=== PATIENT | male | born 2005 | race Caucasian/White ===

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

== ENCOUNTER 2023-02-02 11:44 | Outpatient (CLI) | payer OTHER, SELFPAY ==
[2023-02-02 18:37] LABS: Basophils Absolute Auto 0.1 K/mm3 (0.0-0.1); Basophils Percent Auto 1.2 % (0.2-1.2); Eosinophils Absolute Auto 0.1 K/mm3 (0-0.3); Eosinophils Percent Auto 1.7 % (0-4.4); Immature Granulocyte Absolute 0.02 K/mm3 (0.00-0.031); Immature Granulocyte Percent A 0.3 % (0-0.5); Lymphocytes Percent Auto 34.3 % (18.3-44.2); Mean Corpuscular Hemoglobin 30.4 pg (26-34); Mean Corpuscular Volume 89.3 fl (80-100); Mean Platelet Volume 10.2 fl (7.4-10.4); Monocytes Absolute Auto 0.8 K/mm3 (0.1-0.6); Monocytes Percent Auto 12.6 % (2.6-8.5); Neutrophils Absolute Auto 3.2 K/mm3 (1.3-6.7); Neutrophils Percent Auto 49.9 % (45.5-73.1); Platelet Count Result 237 k/mm3 (150-375); Red Cell Distribution Width 11.9 % (11.5-14.5); White Blood Count 6.4 K/mm3 (4.5-10.0)
[2023-02-02 19:28] LABS: Vitamin D 25 Hydroxy 43.3 ng/mL
== END 2023-02-02 11:45 | disposition home or self-care (01) ==
LOC: ANHGOSHLAB 11:46
PROVIDERS: PCP Family Medicine; Visit Provider Nurse Practitioner Family
DX: F41.9 Anxiety disorder, unspecified (principal); F32.9 Major depressive disorder, single episode, unspecified
CPT/HCPCS: 36415; 82306; 82607; 84443; 85025

== ENCOUNTER 2024-01-28 13:50 | Emergency (ER) | payer OTHER, SELFPAY ==
--- NOTE | ~2024-01-28 | XR_ITS ---
XR finger 1st LT min 2V Ordering provider: Kiya Hoyt APRN History: . injury; pain . Comparison: None. FINDINGS: BONES: No acute fracture or dislocation. JOINT SPACES: Normal. SOFT TISSUES: Normal. IMPRESSION: No acute osseous abnormality. Reviewed, dictated and finalized at location A.
[2024-01-28 14:01] VITALS: BP 130/74; PULSE 99; RESP 18; TEMP 37.1; O2SAT 96
--- NOTE | 2024-01-28 22:36 | ED.GENADULT ---
HPI - General Adult General Chief complaint: Extremity Injury, Upper Stated complaint: LT hand Thumb injury Time Seen by Provider: 01/28/24 14:04 Source: patient, RN notes reviewed and old records reviewed Mode of arrival: ambulatory Limitations: no limitations History of Present Illness HPI narrative: 18-[facility] to [facility] with complaint of left thumb bruising and discomfort with movement since . 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 Patient reports that while trying to catch it, his left thumb hyperextended. Patient has treated with ice. Patient increased to palmar surface. Patient denies numbness, tingling, prior injury, weakness. Patient resting comfortably in exam room in no acute distress. Related Data Home Medications Medication Instructions Recorded Confirmed dextromethorphan IR 45 45 - 105 tablet PO BID 01/28/24 01/28/24 mg-bupropion ER 105 mg biphasic tablet (Auvelity) Allergies Allergy/AdvReac Type Severity Reaction Status Date / Time Penicillins Allergy Unknown Hives Verified 01/28/24 14:00 Review of Systems Review of Systems: All systems reviewed & are unremarkable except as noted in HPI and below Constitutional: Constitutional: Reports no additional constitutional complaints Eyes: Eyes: Reports no additional eye complaints ENT: Reports system reviewed and no additional complaints, except as documented Cardiovascular: Cardiovascular: Reports no additional cardiovascular complaints, Denies chest pain and Denies dyspnea Respiratory: Respiratory: Reports no additional respiratory complaints, Denies cough and Denies dyspnea Musculoskeletal: Musculoskeletal: Reports as per HPI and Reports arthralgias (left thumb) Neurologic: Reports system reviewed and no additional complaints, except as documented Psychiatric: Psychiatric: Reports no additional psychiatric complaints [facility] Past Medical History Medical History Depression Fracture of finger, middle phalanx, right, closed Vasomotor rhinitis Family History Family History Sibling Family history of mental disorder Depression Grandparent Family history of cardiovascular disease Family history of congestive heart failure Social History Social History Smoking status: Never smoker Second hand tobacco smoke exposure: Yes Alcohol intake: never Lack of Transportation: No Lack of Food: Never True Current Housing: I Have Housing Concerned About Future Housing: No Difficulty Paying Gas/Electric Bills: No Difficulty Paying for Meds: No Currently Unemployed: No Education: High School Diploma/GED Living arrangements: dorm student housing Occupation/Education: student Gender identity (if verbalized by the patient): Male Comments At the time of my signature, I reviewed and agree with the nursing past medical, surgical, social, and family history. There is no relevant family history pertinent to the patient complaint. Exam Const: General: cooperative, healthy appearing, comfortable, no acute distress, alert and well nourished Nutritional Appearance: well nourished Orientation/consciousness: patient oriented x3 Limitations: no limitations HENMT: Head: normal to inspection Ears: external ears normal Face/Nose/Sinus: Normal external nose present, Normal nares present, normal facial exam, No erythema and No edema Face and sinus: normal facial exam, no erythema and no edema Mouth: Yes Normal oral and palatal mucosa present Eyes: General: appearance normal, both eyes and all related structures Neck: Neck: normal visual inspection, full ROM and no meningeal signs Chest: Chest palpation & inspection: normal inspection of the chest Resp: Effort & Inspection: nor
== END 2024-01-28 14:53 | disposition home or self-care (01) ==
PROVIDERS: Emergency Provider Nurse Practitioner Family; PCP Family Medicine
DX: S63.602A Unspecified sprain of left thumb, initial encounter (principal); X50.9XXA Other and unspecified overexertion or strenuous movements or postures, initial encounter
CPT/HCPCS: 73140; 99213; G0463

== ENCOUNTER 2024-05-21 09:40 | Outpatient (CLI) | payer OTHER, SELFPAY ==
--- OUTSIDE RECORDS SUMMARY | 2024-05-21 10:48 | XMS_ITS | Clinical Summary ---
Author Organization [facility] Address [address] [place] [address] Care Team Providers Care Limnologist Name Role Phone Chivo Whittaker MD Primary Care Provider [phone] [facility],non-owned Affiliates and Associated Physician Practices is amultiple site organization consisting of ambulatory clinics and hospital sitesin [place], [place], [place] and [place]. This disclosure is being madepursuant to the Care Everywhere program and may not contain all information available regarding this patient. Last updated 17.[facility] Allergies Active Allergy Reactions Criticality Noted Date Comments Penicillins Urticaria Medium 05/01/2021 Medications Be aware that medications may not be up to date on this document. Always verify current medications with the patient. No known medications Active Problems Patient Care Coordination No te Formatting of this note migh t be different from the original. Do you have any cultural preferences or concerns? No 08/24/21 No additional problems on file Social History Tobacco Use Types Packs/Day Years Used Date Smoking Tobacco: Passive Smo ke Exposure - Never Smoker Smokeless Tobacco: Never Comments:both parents smoke outside Sex and Gender Information Value Date Recorded Sex Assigned at Not on file Gender Identity Not on file Sexual Orientation Not on file Last Filed Vital Signs Vital Sign Reading Time Taken Comments Blood Pressure 110/78 08/24/2021 2:35 PM CDT Pulse 66 08/24/2021 2:35 PM CDT Temperature - - Respiratory Rate 20 08/24/2021 2:35 PM CDT Oxygen Saturation 97% 08/24/2021 2:35 PM CDT Inhaled Oxygen Concentration - - Weight 57 kg (125 lb 10.6 oz) 08/24/2021 2:35 PM CDT Height 171.7 cm (5' 7.6 ) 08/24/2021 2:35 PM CDT Body Mass Index 19.33 08/24/2021 2:35 PM CDT Plan of Treatment Health Maintenance Due Date Last Done Comments HIV SCREENING 11/03/2018 HPV VACCINE (1 - Male 3-dose series) 11/03/2018 MENINGOCOCCAL (Group B) VACC INE (1 of 2 - Standard) 2019 HEPATITIS C SCREENING 10/30/2021 DTAP/TDAP/TD VACCINES (1 - Tdap) 11/03/2022 HEPATITIS B VACCINE (1 of 3 - 19+ 3-dose series) 11/03/2022 COVID-19 VACCINE (1 - 2023-2 5 season) 2023 INFLUENZA VACCINE (#1) 2023 DEPRESSION SCREENING 04/09/2024 ZOSTER VACCINE (1 of 2) 11/03/2053 HIB VACCINE Aged Out No longer eligi ble based on patient's age to complete this topic MENINGOCOCCAL VACCINE Aged Out No malik yong eligible based on patient's age to complete this topic PNEUMOCOCCAL VACCINE Aged Out No long er eligible based on patient's age to complete this topic Care Teams Limnologist Relationship Specialty Start Date End Date Chivo Whittaker MD [address] [place] [id number] PCP - General Family Medicine 07/26/21
--- OUTSIDE RECORDS SUMMARY | 2024-05-21 10:48 | XMS_ITS | Patient Health Summary ---
Author Organization [facility] Address [address] [place] [address] Care Team Providers Care Computer Application Developer Name Role Phone Chivo Whittaker MD Primary Care Provider [phone]- [phone] Note from [facility] [place],non-owned Affiliates and Associated Physician Practices is amultiple site organization consisting of ambulatory clinics and hospital sitesin [place], [place], [place] and [place]. This disclosure is being madepursuant to the Care Everywhere program and may not contain all information available regarding this patient. Last updated 17.[facility] Allergies * Penicillins(Urticaria) -Medium Criticality Medications Be aware that medications may not be up to date on this document. Always verify current medications with the patient. No known medications Social History Tobacco Use Types Packs/Day Years [...] Mass Index 19.33 08/24/2021 2:35 PM CDT Care Teams Computer Application Developer Relationship Specialty Start Date End Date Chivo Whittaker MD [facility] [place] [address] PCP - General Family Medicine 07/26/21
--- OUTSIDE RECORDS SUMMARY | 2024-05-21 10:48 | XMS_ITS | Referral Summary ---
Author Organization [facility] Address [address] [place] [address] Care Team Providers Care Circular Knitter Name Role Phone Chivo Whittaker MD Primary Care Provider [phone]- [phone] Source Comments [facility],non-[facility] Affiliates and Associated Physician Practices is amultiple site organization consisting of ambulatory clinics and hospital sitesin [place], [place], [place] and [place]. This disclosure is being madepursuant to the Care Everywhere program and may not contain all information available regarding this patient. Last updated 17.[facility] [employer] Allergies Active Allergy Reactions Criticality Noted Date [...] 08/24/2021 2:35 PM CDT Plan of Treatment Not on file Care Teams Circular Knitter Relationship Specialty Start Date End Date Chivo Whittaker MD [facility] [place] [address] PCP - General Family Medicine 07/26/21
--- OUTSIDE RECORDS SUMMARY | 2024-05-21 10:48 | XMS_ITS | Patient Health Record ---
Author Organization [facility] [employer] Address [address] [facility] [address] [place] [address] Care Team Providers Care Multi [place] Assessor Name Role Phone Chivo Whittaker MD Primary Care Provider Alycia Luo Unavailable [phone] Yousuf Anthony Unavailable [phone] Migration, Provider Unavailable Unavailable Allergies Allergen (clinical drug ingredient) Drug/Non Drug Allergy documented on EMR Reaction Allergy Type Onset Date Status Substance with penicillin structure and antibacterial mechanism of action (substance) Penicillins Unknown Drug Allergy 07/25/2023 Active Reason For Referral No Information Medications Medication SIG (Take, Route, Fr equency, Duration) Notes Start Date End Date Status Mirtazapine 15 MG 1 tablet at bedtime Oral Once a day for 90 days Active Desvenlafaxine ER 50 MG 1 tablet Orally Once a day for 30 days 04/25/2024 Active Social History Tobacco Use: Social History Observation Description Date Details (start date - stop date) Never Smoker NA - NA Sex Assigned At : Social History Observation Description Sex Assigned At Male Household Question Answer Notes Marital status: single Number of children in household: 0 Level of education: finished high school Tobacco Control (Standard) Question Answer Notes Tobacco use: Nonsmoker AUDIT-C (Standard) Question Answer Notes Did you have a drink contain ing alcohol in the past year? Yes Points 6 Interpretation Positive How often did you have six o r more drinks on one occasion in the past year? 2 to 4 times a month (2 points) How many drinks did you have on a typical day when you were drinking in the past year? 5 or 6 drinks (2 points) How often did you have a dri nk containing alcohol in the past year? 2 to 4 times a month (2 points) Problems Problem Type SNOMED Code ICD Code Onset Dates Problem Status W/U Status Risk Notes Problem Severe recurrent major depression without psychotic features (28862686) Major depressive disorder, recurrent severe without psychotic features (F33.2) Active confirmed Problem Generalized anxiety disorder (14169395) Generalized anxiety disorder (F41.1) Active confirmed Problem Attention deficit hyperactivity disorder, combined type (28498678) Attention-deficit hyperactivity disorder, combined type (F90.2) Active confirmed Problem [id number] MARY KAY (generalized anxiety disorder) (F41.1) Active confirmed Problem 56534298 MDD (major depressive disorder), recurrent severe, without psychosis (F33.2) Active confirmed Vital Signs Heart Rate 71 /min 07/25/2023 Blood pressure diastolic 72 mm Hg 07/25/2023 Height-cm 172.72 cm 07/25/2023 Weight-kg 62.60 kg 07/25/2023 Height 68.00 in 07/25/2023 Blood pressure systolic 112 mm Hg 07/25/2023 Weight 138.00 lbs 07/25/2023 BMI 21 kg/m2 07/25/2023 Encounters Encounter Location Date Provider Diagnosis [facility] [employer] [place] [id number] [address] 05/23/2023 Anthony Yousuf Major depressive disorder, recurrent severe without psychotic features F33.2 and Generalized anxiety disorder F41.1 [facility] [employer] [facility] [address] [address] 05/30/2023 Anthony Yousuf Major depressive disorder, recurrent severe without psychotic features F33.2 and Generalized anxiety disorder F41.1 [facility] [employer] [facility] [address] [address] 06/13/2023 Alycia Kristen Major depressive disorder, recurrent severe without psychotic features F33.2 and Generalized anxiety disorder F41.1 [facility] [employer] [facility] [address] [facility] [address] [place] [address] 07/25/2023 Alycia Kristen Generalized anxiety disorder F41.1 and Major depressive disorder, recurrent severe without psychotic features F33.2 [facility] [employer] [facility] [address] [facility] [address] [place] [address] 09/12/2023 Alycia Kristen MDD (major depressiv e disorder), recurrent severe, without psychosis F33.2 and MARY KAY (generalized anxiety disorder) F41.1 [facility] [address] [place] [address] 10/03/2023 Alycia Kristen Major depressive disorder, recurrent severe without psychotic features F33.2 ; Generalized anxiety disorder F41.1 ; Attention-deficit hyperactivity disorder, combined type F90.2 ; MDD (major depressive disorder), recurrent severe, without psychosis F33.2 and MARY KAY (generalized anxiety disorder) F41.1 [facility] [address] [place] [address] 11/06/2023 Alycia Kristen Major depressive disorder, recurrent severe without psychotic features F33.2 ; Generalized anxiety disorder F41.1 and Attention-deficit hyperactivity disorder, combined type F90.2 [facility] [address] [place] [address] 12/14/2023 Alycia Kristen Major depressive disorder, recurrent severe without psychotic features F33.2 ; Generalized anxiety disorder F41.1 and Attention-deficit hyperactivity disorder, combined type F90.2 [facility] [address] [place] [address] 01/11/2024 Alycia Kristen Major depressive disorder, recurrent severe without psychotic features F33.2 ; Generalized anxiety disorder F41.1 and Attention-deficit hyperactivity disorder, combined type F90.2 [facility] [address] [place] [address] 02/15/2024 Alycia Kristen Major depressive disorder, recurrent severe without psychotic features F33.2 ; Generalized anxiety disorder F41.1 and Attention-deficit hyperactivity disorder, combined type F90.2 [facility] [address] [place] [address] 03/14/2024 Alycia Kristen Major depressive disorder, recurrent severe without psychotic features F33.2 ; Generalized anxiety disorder F41.1 and Attention-deficit hyperactivity disorder, combined type F90.2 [facility] [address] [place] [address] 04/25/2024 Alycia Kristen Major depressive disorder, recurrent severe without psychotic features F33.2 ; Generalized anxiety disorder F41.1 and Attention-deficit hyperactivity disorder, combined type F90.2 [facility] [address] [place] [address] 08/16/2023 Provider Migration [facility] [address] [facility] [address] [place] [address] 08/25/2023 Provider Migration [facility] [address] [facility] [address] [place] [address] 08/26/2023 Provider Migration Assessments Encounter Date Diagnosis (ICD Code) Assessment Notes Treatment Notes Treatment Clinical Notes Section Notes 10/03/2023 Major depressive disorder, recurrent severe without psychotic features (ICD-10 - F33.2) Start duloxetine 30mg daily for mood, anxiety. Patient educated on all medications including potential benefits, side effects, risks. Educated on proper dosing schedule and importance of compliance. 10/03/2023 Generalized anxiety disorder (ICD-10 - F41.1) 11/06/2023 Major depressive disorder, recurrent severe without psychotic features (ICD-10 - F33.2) Start duloxetine 30mg daily for mood, anxiety. Patient educated on all medications including potential benefits, side effects, risks. Educated on proper dosing schedule and importance of compliance. 12/14/2023 Major depressive disorder, recurrent severe without psychotic features (ICD-10 - F33.2) Increase duloxetine to 60mg BID for anxiety, depression. Patient educated on all medications including potential benefits, side effects, risks. Educated on proper dosing schedule and importance of compliance. 01/11/2024 Major depressive disorder, recurrent severe without psychotic features (ICD-10 - F33.2) Electronic Prior Authorization was requested for Auvelity 45-105 MG Tablet Extended Release. Provider can order medication once approval received. 02/15/2024 Major depressive disorder, recurrent severe without psychotic features (ICD-10 - F33.2) 1. MDD -stop auvelity -start trintellix 5mg daily 2. MARY KAY -mirtazapine 15mg daily -Encourage non-pharmaceu tical treatments including deep breathing, grounding exercises, physical activity, healthy diet. 3. ADHD 04/25/2024 Major depressive disorder, recurrent severe without psychotic features (ICD-10 - F33.2) SSRI/SNRI side effects discussed including but not limited to, gastric upset, nausea, vomiting, diarrhea and/or constipation, weight changes, sexual side effects including loss of libido, increased suicidal thoughts/behavior s in children and young adults, and serotonin syndrome. 03/14/2024 Major depressive disorder, recurrent severe without psychotic features (ICD-10 - F33.2) 1. MDD -increase trintellix-10 mg daily for one week then 20mg daily -willing to consider TMS or esketamine next apt if trintellix not helpful -discussed maintaining conistant sleep routine and sleep hygeine. 2. MARY KAY -mirtazapine 15mg daily -Encourage non-pharmaceu tical treatments including deep breathing, grounding exercises, physical activity, healthy diet. 3. ADHD manageable off of medication Discussed TMS and esketamine - KEEP YOUR BEDROOM DARK - GET LOTS OF NATURAL LIGHT IN THE MORNING. - DON'T WORK ON YOUR COMPUTER OR PHONE LATE AT NIGHT. - AVOID NAPS DURING THE DAY. - NO CAFFEINE 3 HOURS OR MORE AFTER WAKE UP TIME. - ONLY USE YOUR BED FOR SLEEPING - GET A RELAXATION ROUTINE BEFORE BED. - IF YOU CAN'T GET TO SLEEP AFTER 15 TO 30 MINUTES GET OUT OF BED AND DO SOMETHING RELAXING. - DON'T DRINK ALCOHOL IN THE EVENING or limit alcohol to 1 drink. 09/12/2023 MDD (major depressive disorder), recurrent severe, without psychosis (ICD-10 - F33.2) Stop Rexulti due to ineffectiveness. Wants to consider TMS in future. 05/23/2023 Major depressive disorder, recurrent severe without psychotic features (ICD-10 - F33.2) 05/23/2023 Generalized anxiety disorder (ICD-10 - F41.1) 05/30/2023 Major depressive disorder, recurrent severe without psychotic features (ICD-10 - F33.2) 05/30/2023 Generalized anxiety disorder (ICD-10 - F41.1) 07/25/2023 Major depressive disorder, recurrent severe without psychotic features (ICD-10 - F33.2) 07/25/2023 Generalized anxiety disorder (ICD-10 - F41.1) 06/13/2023 Major depressive disorder, recurrent severe without psychotic features (ICD-10 - F33.2) 06/13/2023 Generalized anxiety disorder (ICD-10 - F41.1) 09/12/2023 MARY KAY (generalized anxiety disorder) (ICD-10 - F41.1) Start Buspar 5 mg TID for anxiety. 03/14/2024 Generalized anxiety disorder (ICD-10 - F41.1) 1. MDD -increase trintellix-10 mg daily for one week then 20mg daily -willing to consider TMS or esketamine next apt if trintellix not helpful -discussed maintaining conistant sleep routine and sleep hygeine. 2. MARY KAY -mirtazapine 15mg daily -Encourage non-pharmaceu tical treatments including deep breathing, grounding exercises, physical activity, healthy diet. 3. ADHD manageable off of medication Discussed TMS and esketamine - KEEP YOUR BEDROOM DARK - GET LOTS OF NATURAL LIGHT IN THE MORNING. - DON'T WORK ON YOUR COMPUTER OR PHONE LATE AT NIGHT. - AVOID NAPS DURING THE DAY. - NO CAFFEINE 3 HOURS OR MORE AFTER WAKE UP TIME. - ONLY USE YOUR BED FOR SLEEPING - GET A RELAXATION ROUTINE BEFORE BED. - IF YOU CAN'T GET TO SLEEP AFTER 15 TO 30 MINUTES GET OUT OF BED AND DO SOMETHING RELAXING. - DON'T DRINK ALCOHOL IN THE EVENING or limit alcohol to 1 drink. 04/25/2024 Generalized anxiety disorder (ICD-10 - F41.1) 02/15/2024 Generalized anxiety disorder (ICD-10 - F41.1) 1. MDD -stop auvelity -start trintellix 5mg daily 2. MARY KAY -mirtazapine 15mg daily -Encourage non-pharmaceu tical treatments including deep breathing, grounding exercises, physical activity, healthy diet. 3. ADHD 01/11/2024 Generalized anxiety disorder (ICD-10 - F41.1) 12/14/2023 Generalized anxiety disorder (ICD-10 - F41.1) 11/06/2023 Generalized anxiety disorder (ICD-10 - F41.1) 10/03/2023 Attention-defici t hyperactivity disorder, combined type (ICD-10 - F90.2) 11/06/2023 Attention-defici t hyperactivity disorder, combined type (ICD-10 - F90.2) 12/14/2023 Attention-defici t hyperactivity disorder, combined type (ICD-10 - F90.2) 01/11/2024 Attention-defici t hyperactivity disorder, combined type (ICD-10 - F90.2) 02/15/2024 Attention-defici t hyperactivity disorder, combined type (ICD-10 - F90.2) 1. MDD -stop auvelity -start trintellix 5mg daily 2. MARY KAY -mirtazapine 15mg daily -Encourage non-pharmaceu tical treatments including deep breathing, grounding exercises, physical activity, healthy diet. 3. ADHD 04/25/2024 Attention-defici t hyperactivity disorder, combined type (ICD-10 - F90.2) 03/14/2024 Attention-defici t hyperactivity disorder, combined type (ICD-10 - F90.2) 1. MDD -increase trintellix-10 mg daily for one week then 20mg daily -willing to consider TMS or esketamine next apt if trintellix not helpful -discussed maintaining conistant sleep routine and sleep hygeine. 2. MARY KAY -mirtazapine 15mg daily -Encourage non-pharmaceu tical treatments including deep breathing, grounding exercises, physical activity, healthy diet. 3. ADHD manageable off of medication Discussed TMS and esketamine - KEEP YOUR BEDROOM DARK - GET LOTS OF NATURAL LIGHT IN THE MORNING. - DON'T WORK ON YOUR COMPUTER OR PHONE LATE AT NIGHT. - AVOID NAPS DURING THE DAY. - NO CAFFEINE 3 HOURS OR MORE AFTER WAKE UP TIME. - ONLY USE YOUR BED FOR SLEEPING - GET A RELAXATION ROUTINE BEFORE BED. - IF YOU CAN'T GET TO SLEEP AFTER 15 TO 30 MINUTES GET OUT OF BED AND DO SOMETHING RELAXING. - DON'T DRINK ALCOHOL IN THE EVENING or limit alcohol to 1 drink. 10/03/2023 MDD (major depressive disorder), recurrent severe, without psychosis (ICD-10 - F33.2) Continue Remeron 15mg daily 10/03/2023 MARY KAY (generalized anxiety disorder) (ICD-10 - F41.1) Discontinue buspar due to side effects. 11/06/2023 Other Increase duloxeting to 60mg daily for anxiety. Patient educated on all medications including potential benefits, side effects, risks. Educated on proper dosing schedule and importance of compliance. 01/11/2024 Other Taper off of duloxetine. Start Auvelity-- take one tablet daily for one week, then two tablet daily 6-8 hours apart. Patient educated on all medications including potential benefits, side effects, risks. Educated on proper dosing schedule and importance of compliance. Consider TMS, Spravato 04/25/2024 Other Stop trintellix per pt. Start desvenlafaxine 50mg daily for mood Patient educated on all medications including potential benefits, side effects, risks. Educated on proper dosing schedule and importance of compliance. -Assessment and treatment plan reviewed with patient. -Compliance with treatment plan importance discussed. -Discussed the risks/benefits of this medication -Discussed medication side effects. -Contact office if symptoms worsen. -Discussed that it can take up to 6-8 weeks to see full therapeutic effects of psychotropic medications. -Crisis prevention hotline 988. 02/15/2024 Other Start trintellix 5mg daily for mood, anxiety. Patient educated on all medications including potential benefits, side effects, risks. Educated on proper dosing schedule and importance of compliance. 1. MDD -stop auvelity -start trintellix 5mg daily 2. MARY KAY -mirtazapine 15mg daily -Encourage non-pharmaceu tical treatments including deep breathing, grounding exercises, physical activity, healthy diet. 3. ADHD 03/14/2024 Other Increase Trintellix-take 10mg (half a tablet) daily for one week, then 20mg daily Consider TMS or esketamine next apt if no improvement Patient educated on all medications including potential benefits, side effects, risks. Educated on proper dosing schedule and importance of compliance. -Assessment and treatment plan reviewed with patient. -Compliance with treatment plan importance discussed. -Discussed the risks/benefits of this medication -Discussed medication side effects. -Contact office if symptoms worsen. -Discussed that it can take up to 6-8 weeks to see full therapeutic effects of psychotropic medications. -[phone] 1. MDD -increase trintellix-10 mg daily for one week then 20mg daily -willing to consider TMS or esketamine next apt if trintellix not helpful -discussed maintaining conistant sleep routine and sleep hygeine. 2. MARY KAY -mirtazapine 15mg daily -Encourage non-pharmaceu tical treatments including deep breathing, grounding exercises, physical activity, healthy diet. 3. ADHD manageable off of medication Discussed TMS and esketamine - KEEP YOUR BEDROOM DARK - GET LOTS OF NATURAL LIGHT IN THE MORNING. - DON'T WORK ON YOUR COMPUTER OR PHONE LATE AT NIGHT. - AVOID NAPS DURING THE DAY. - NO CAFFEINE 3 HOURS OR MORE AFTER WAKE UP TIME. - ONLY USE YOUR BED FOR SLEEPING - GET A RELAXATION ROUTINE BEFORE BED. - IF YOU CAN'T GET TO SLEEP AFTER 15 TO 30 MINUTES GET OUT OF BED AND DO SOMETHING RELAXING. - DON'T DRINK ALCOHOL IN THE EVENING or limit alcohol to 1 drink. Plan Of Treatment Next Appt Details Provider Name:Alycia Peterson, 05/23/2024 02:30:00 PM, [address] [facility] [address], [place], [address], Insurance Providers Payer Name Payer Address Payer Phone Subscriber Number Group Number Insured Name Patient Relationship to Insured Coverage Start Date Coverage End Date [facility] [address] [place] [address] [id number] [employer] Self - patient is the insured Medical (General) History Medical History History ICD Code Problems: Generalized anxiety disorder Severe recurrent major depression withou t psychotic features , Hospitalization History Reason Date(Month/Year) no IP admission hx
--- OUTSIDE RECORDS SUMMARY | 2024-05-21 10:49 | XMS_ITS ---
Author Organization [email or web address] Address [address] [facility] [address] [place] [address] Care Team Providers Care Linseed Oil Temperer Name Role Phone Chivo Whittaker MD Primary Care Provider Alycia Luo Unavailable [phone] Allergies Allergen (clinical drug ingredient) Drug/Non Drug Allergy documented on EMR Reaction Allergy Type Onset Date Status Substance with penicillin structure and antibacterial mechanism of action (substance) Penicillins Unknown Drug Allergy 07/25/2023 Active REASON FOR VISIT follow up Medications Medication SIG (Take, Route, Fr equency, Duration) Notes Start Date End Date Status Mirtazapine 15 MG 1 tablet at bedtime Oral Once a day for 90 days Active Trintellix 5 MG 1 tablet Orally Once a day for 30 days 02/15/2024 Active Social History Tobacco Use: Social History [...] to 4 times a month (2 points) Encounters Encounter Location Date Provider Diagnosis [facility] [address] [place] [address] [place] [address] 02/15/2024 Alycia Peterson Major depressive disorder, recurrent severe without psychotic features F33.2 ; Generalized anxiety disorder F41.1 and Attention-deficit hyperactivity disorder, combined type F90.2 Assessments Encounter Date Diagnosis (ICD Code) Assessment Notes Treatment Notes Treatment Clinical Notes Section Notes 02/15/2024 Major depressive disorder, recurrent severe without psychotic features (ICD-10 - F33.2) 1. MDD -stop auvelity -start trintellix 5mg daily 2. MARY KAY -mirtazapine 15mg daily -Encourage non-pharmaceu tical treatments including deep breathing, grounding exercises, physical activity, healthy diet. 3. ADHD 02/15/2024 Generalized anxiety disorder (ICD-10 - F41.1) 1. MDD -stop auvelity -start trintellix 5mg daily 2. MARY KAY -mirtazapine 15mg daily -Encourage non-pharmaceu tical treatments including deep breathing, grounding exercises, physical activity, healthy diet. 3. ADHD 02/15/2024 Attention-deficit hyperactivity disorder, combined type (ICD-10 - F90.2) 1. MDD -stop auvelity -start trintellix 5mg daily 2. MARY KAY -mirtazapine 15mg daily -Encourage non-pharmaceu tical treatments including deep breathing, grounding exercises, physical activity, healthy diet. 3. ADHD 02/15/2024 Other Start trintellix 5mg daily for mood, anxiety. Patient educated on all medications including potential benefits, side effects, risks. Educated on proper dosing schedule and importance of compliance. 1. MDD -stop auvelity -start trintellix 5mg daily 2. MARY KAY -mirtazapine 15mg daily -Encourage non-pharmaceu tical treatments including deep breathing, grounding exercises, physical activity, healthy diet. 3. ADHD Plan Of Treatment Medication Medication Name Sig Start Date Stop Date Notes Mirtazapine 15 MG 1 tablet at bedtime Oral Once a day for 90 days Trintellix 5 MG 1 tablet Orally Once a day for 30 days 11/2023 Auvelity 45-105 MG 1 tablet Oral twice a day for 30 days Treatment Notes Assessment Notes Other Start trintellix 5mg daily for mood, anxiety. Patient educated on all medications including potential benefits, side effects, risks. Educated on proper dosing schedule and importance of compliance. Next Appt Details Follow Up: 4 Weeks, Reason: medication follow up Provider Name:Alycia Peterson, 05/23/2024 02:30:00 PM, [address], [facility] [address], [place], [address], Progress Notes * PRECIOUS GIVENS HDOB: 4 (18 yo M)Acc No.[id number]:02/15/2024 Patient: PRECIOUS MANUEL Provider: FRANDY VÁSQUEZ :2005 A ge:18 Y S ex:Male Date:02/15/2024 Address:[address] [place], [place] [id number] Pcp:Chivo Whittaker MD Subjective: * Chief Complaints: * 1 . Follow up. * HPI: H istory of Presenting Problem: Anxiety w ith excessive worry, which has been long-standing, aggravated by, difficult work, financial and/or relationship issues. D epression w ith sad mood, with isolative behavior, with feeling of hopelessness and helplessness, with decreased energy, with decreased concentration, which has been long- standing, aggravated by, difficult work, financial and/or relationship issues R ates depression 6/10 with 10 being most severe. Denies SI. . M ood lability N o hx dorian. P sychosis N o hx psychosis . S leep disturbance e xcessive sleeping- has apt with sleep doctor. . S uicidal ideation D enies. Here for medication follow up. A uvelity started last apt. Reports he has not noticed a significant difference. Althought states he has not been taking the second dose as consistnatly as he should be, missing it a couple days weekly. He quit his job at the [employer], reports not having a job has been bad for his depression. He feels he has been isolating, I am getting nothiing done . He has been sleeping through classes.? Sleep is increased, getting about 9 hours nightly. Energy is low. Appetite is fair. P ast Psychiatric Hospitalizations: Social hx: Single, no children. Has three siblings, one older sister, one younger brother and sister. Completed high school. Went to school for one year at [employer]. 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 Unsure what he wants to do with his degree. Currently unemployed. Medical hx: Denies chronic medical history. History of one concussion Apr 2021 from falling on ice. Previous Psychiatric History past diagnosis: MDD, MARY KAY previous admissions/IOP/PHP: none history of SI/SA: history of suicidal ideation, history of planning one time, no history of attempts. family psychiatric history: none previously trialled medications: Prozac, Viibryd, Wellbutrin (increased sweating, insomnia), sertraline, Remeron, Buspar, duloxetine, rexulti, auvelity (ineffective) history of neglect/abuse/trauma: none substance use history: Cannabis use about weekly. Social alcohol use. D epression Screening: MARY KAY-7 (2018 Edition) F eeling nervous, anxious, or on edge?Several days, N ot being able to stop or control worrying N ot at all, W orrying too much about different things S everal days, T rouble relaxing S everal days, B eing so restless that it is hard to sit still M ore than half the days, B ecoming easily annoyed or irritable S everal days, F eeling afraid as if something awful might happen N ot at all, T otal MARY KAY-7 Score 6 , I f you checked any problems, how difficult have they made it for you to do your work, take care of things at home, or get along with other people? S omewhat difficult, I nterpretation of Total ( 5 to 9) Mild. C [place]-Suicide Severity Rating Scale: Suicide Risk (CSRS-screener) i n the past one month Have you wished you were or wished you could go to sleep and not wake up? Y es, i n the past one month Have you actually had any thoughts of killing yourself? N o. D epression screening: PHQ-9 L ittle interest or pleasure in doing things S everal days, F eeling down, depressed, or hopeless M ore than half the days, T rouble falling or staying asleep, or sleeping too much N early every day, F eeling tired or having little energy M ore than half the days, P oor appetite or overeating S ever, F eeling bad about yourself or that you are a failure, or have let yourself or your family down M ore than half the days, T rouble concentrating on things, such as reading the newspaper or watching television S , M oving or speaking so slowly that other people could have noticed; or the opposite, being so fidgety or restless that you have been moving around a lot more than usual N ot at all, T houghts that you would be better off or of hurting yourself in some way N ot at all, T otal Score 1 2, I nterpretation M oderate Depression. I ntervention D epression Screening Findings P ositve, F ollow-Up for Depression M ental health treatment assessment, Patient follow-up to return when and if necessary, A dditional Evaluation for Depression P sychiatric interview and evaluation, N ashkan of the standardized tool used for adult depression screening: [facility] Health Questionnaire (PHQ-9). * ROS: G eneral / Constitutional: Patient denies c hange in appetite, lightheadedness, sleep disturbance, weight gain, weight loss. P sychiatric: Patient denies s uicidal thoughts, auditory / visual hallucinations, dorian, psychosis. P atient complains of a nxiety, depressed mood. C omments?See HPI for details. * Medical History: P roblems: Generalized anxiety disorder, Severe recurrent major depression without psychotic features, ,. * Hospitalization/Major Diagno stic Procedure: n o IP admission hx . * Family History: denies family psychiatric history. * Social History: T obacco Use: T obacco Control (Standard) T obacco use: N onsmoker. M igrated Social History: M igrated Social History: Alcohol Intake: Occasional 04/11/2023,Tobacco Years: Never smoker 03/02/2023. D rug/Alcohol: A MACK-C (Standard) D id you have a drink containing alcohol in the past year? Y es,?How often did you have six or more drinks on one occasion in the past year? 2 to 4 times a month (2 points), H ow many drinks did you have on a typical day when you were drinking in the past year? 5 or 6 drinks (2 points), H ow often did you have a drink containing alcohol in the past year? 2 to 4 times a month (2 points), P oints 6 , I nterpretation P ositive. H ousehold: H ousehold M arital status: s leslie, N umber of children in household: 0 ,?Level of education: f inished high school. M iscellaneous: A dvance Care Planning A re you your own decision-maker Y es, D o you have Power of Mat Roller for Health or Medical? N o. * Medications: T aking Mirtazapine 15 MG Tablet 1 tablet at bedtime Oral Once a day , Taking Auvelity 45-105 MG Tablet Extended Release 1 tablet Oral twice a day , Medication List reviewed and reconciled with the patient * Allergies: P enicillins: Allergy - Onset Date 07/25/2023. Objective: * Vitals: * Examination: P sychiatry: Appearance: w ell-groomed. Abnormal body movements: n one. Affect / mood: s ad. Attention: g ood. Attitude: c ooperative. Homicidal ideation: n one. Suicidal ideation: n one. Degree of awareness of surroundings: w ithin normal limits.? Delusions: n o. Hallucinations: n o. Insight: g ood. Judgement: g ood. Orientation: a wake, alert and oriented x 3. Perceptual disorders: n o perceptual disorder noted. Psychomotor activity: w ithin normal range. Speech / language: n ormal rate, volume, and articulation (RVR). Thought content: a ppropriate. Thought process: i ntact. Assessment: * Assessment: 1. M ajor depressive disorder, recurrent severe without psychotic features - F33.2 (Primary)? 2. G eneralized anxiety disorder - F41.1 3 . A ttention-deficit hyperactivity disorder, combined type - F90.2 1. MDD -stop auvelity -start trintellix 5mg daily 2. MARY KAY -mirtazapine 15mg daily -Encourage non-pharmaceutical treatments including deep breathing, grounding exercises, physical activity, healthy diet. 3. ADHD Plan: * Treatment: 2. O thers Notes: Start trintellix 5mg daily for mood, anxiety. Patient educated on all medications including potential benefits, side effects, risks. Educated on proper dosing schedule and importance of compliance. * Procedure Codes: 9 6127 BEHAV ASSMT W/SCORE & DOCD/STAND INSTRUMENT, G2211 VISIT COMPLEXITY INHERENT TO ONGOING CARE RELATED TO A PATIENT'S SINGLE, SERIOUS CONDITION OR A COMPLEX CONDITION, G8431 CLIN DEPRESSION SCREEN DOC * Follow Up: 4 Weeks (Reason: medication follow up) * Billing Information: * Visit Code: 17162 OFFICE OUTPATIENT VISIT 25 MINUTES DETAILED HISTORY AND EXAM/MODERATE MEDICAL DECISION MAKING. * Procedure Codes: 34801 BEHAV ASSMT W/SCORE & DOCD/STAND INSTRUMENT. G2211 VISIT COMPLEXITY INHERENT TO ONGOING CARE RELATED TO A PATIENT'S SINGLE, SERIOUS CONDITION OR A COMPLEX CONDITION. G8431 CLIN DEPRESSION SCREEN DOC. * ETICS PROFESSOR Sign off status: Completed true * Provider: FRANDY VÁSQUEZ Date: 1 04/16/2023 Generated for Nader calero/Dominique/Nainasmitting on: 0 05/21/2024 10:48 AM DIETETICS PROFESSOR History and Physical Notes * HPI (History of Present Illness) Category Sub-Category Detail Notes Category Not es History of Presenting Problem Anxiety with excessive worry, which has been long-standing, aggravated by, difficult work, financial and/or relationship issues Here for medication follow up. Auvelity started last apt. Reports he has not noticed a significant difference. Althought states he has not been taking the second dose as consistnatly as he should be, missing it a couple days weekly. He quit his job at the [employer], reports not having a job has been bad for his depression. He feels he has been isolating, I am getting nothiing done . He has been sleeping through classes. Sleep is increased, getting about 9 hours nightly. Energy is low. Appetite is fair. Depression with sad mood, with isolative behavior, with feeling of hopelessness and helplessness, with decreased energy, with decreased concentration, which has been long- standing, aggravated by, difficult work, financial and/or relationship issues Rates depression 6/10 with 10 being most severe. Denies SI. Suicidal ideation Denies Sleep disturbance excessive sleeping- has apt with sleep doctor. Psychosis No hx psychosis Mood lability No hx dorian Past Psychiatric Hospitalizations Social hx: Single, no children. Has three siblings, one older sister, one younger brother and sister. Completed high school. Went to school for one year at [employer]. 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 Unsure what he wants to do with his degree. Currently unemployed. Medical hx: Denies chronic medical history. History of one concussion Apr 2021 from falling on ice. Previous Psychiatric History past diagnosis: MDD, MARY KAY previous admissions/IOP/PHP: none history of SI/SA: history of suicidal ideation, history of planning one time, no history of attempts. family psychiatric history: none previously trialled medications: Prozac, Viibryd, Wellbutrin (increased sweating, insomnia), sertraline, Remeron, Buspar, duloxetine, rexulti, auvelity (ineffective) history of neglect/abuse/trauma: none substance use history: Cannabis use about weekly. Social alcohol use. Depression screening PHQ-9 Little inte rest or pleasure in doing things: Several days Feeling down, depressed, or hopeless: Mo re than half the days Trouble falling or staying asleep, or sl eeping too much: Nearly every day Feeling tired or having little energy: M ore than half the days Poor appetite or overeating: Several day s Feeling bad about yourself o r that you are a failure, or have let yourself or your family down: More than half the days Trouble concentrating on thi ngs, such as reading the newspaper or watching television: Several days Moving or speaking so slowly that other people could have noticed; or the opposite, being so fidgety or restless that you have been moving around a lot more than usual: Not at all Thoughts that you would be b narayan off or of hurting yourself in some way: Not at all Total Score: 12 Interpretation: Moderate Depression Intervention Depression Screening Findings: P ositve Follow-Up for Depression: [facility] treatment assessment, Patient follow-up to return when and if necessary Additional Evaluation for Depression: Ps ychiatric interview and evaluation Name of the standardized too l used for adult depression screening:: Patient Health Questionnaire (PHQ-9) Depression Screening MARY KAY-7 (2018 Edition) Feelin g nervous, anxious, or on edge: Several days Not being able to stop or control worryi ng: Not at all Worrying too much about different things : Several days Trouble relaxing: Several days Being so restless that it is hard to sit still: More than half the days Becoming easily annoyed or irritable: Se veral days Feeling afraid as if something awful jamar ht happen: Not at all Total MARY KAY-7 Score: 6 If you checked any problems, how difficult have they made it for you to do your work, take care of things at home, or get along with other people?: Somewhat difficult Interpretation of Total: (5 to 9) Mild [place]-Suicide Severity Rating Scale Suicide Risk (CSRS-screener) in the past one month Have you wished you were or wished you could go to sleep and not wake up?: Yes in the past one month Have y ou actually had any thoughts of killing yourself?: No Examination Category Sub-Category Detail Notes Category Not es Psychiatry Appearance: well-groomed Attitude: cooperative Psychomotor activity: within normal rang e Abnormal body movements: none Attention: good Degree of awareness of surroundings: wit hin normal limits Orientation: awake, alert and radha ented x 3 Affect / mood: sad Speech / language: normal rate, volume, and articulation (RVR) Insight: good Judgement: good Thought process: intact Thought content: appropriate Perceptual disorders: no perceptual diso rder noted Suicidal ideation: none Homicidal ideation: none Delusions: no Hallucinations: no
--- OUTSIDE RECORDS SUMMARY | 2024-05-21 10:49 | XMS_ITS | Clinical Summary ---
Author Organization [facility] Address [address] [place] [id number] Care Team Providers Care Human Services Assistant Name Role Phone Chivo Whittaker MD Primary Care Provider [phone] Allergies Active Allergy Reactions Criticality Noted Date Comments Penicillins Hives Medium 05/01/2021 Medications No known medications Social History Tobacco Use Types Packs/Day Years Used Date Smoking Tobacco: Never Smokeless Tobacco: Never Sex and Gender Information Value Date Recorded Sex Assigned at Not on file Legal Sex Male 8:00 PM CDT Gender Identity Not on file Sexual Orientation Not on file Last Filed Vital Signs Vital Sign Reading Time Taken Comments Blood Pressure 142/74 05/01/2021 11:01 PM RICE MILLING SUPERVISOR Pulse 96 05/01/2021 11:01 PM RICE MILLING SUPERVISOR Temperature 36.7 C (98 F) 05/01/2021 11:01 PM RICE MILLING SUPERVISOR Respiratory Rate 18 05/01/2021 11:01 PM RICE MILLING SUPERVISOR Oxygen Saturation 100% 05/01/2021 11:01 PM RICE MILLING SUPERVISOR Inhaled Oxygen Concentration - - Weight 59 kg (130 lb) 05/01/2021 11:01 PM RICE MILLING SUPERVISOR Height 172.7 cm (5' 8 ) 05/01/2021 11:01 PM RICE MILLING SUPERVISOR Body Mass Index 19.77 05/01/2021 11:01 PM RICE MILLING SUPERVISOR Plan of Treatment Health Maintenance Due Date Last Done Comments Annual Physical 11/03/2006 HPV Vaccines (1 - Male 3-dose series) 11/03/2018 Meningococcal B Vaccine (1 of 2 - Standard) 2019 Hepatitis C 11/03/2021 COVID-19 Vaccine (1 - season) 2023 Influenza Adult (#1) 2024 04/04/2007, 02/08/20 05 DTaP, Tdap and Td Vaccines (7 - Td or Tdap) 11/16/2024 11/16/2014, 11/17/2008, 06/22/2005, Additional history exists Hepatitis B Vaccines Completed 05/09/2004, 03/09/2004, 01/11/2004, Additional history exists Pneumococcal Vaccine: Pediatrics (0 to 5 Years) and At-Risk Patients (6 to 64 Years) Aged Out 02/07/2005, 05/09/2004, 03/09/2004, Additional history exists No longer eligible based on patient's age to complete this topic Meningococcal Vaccine Completed 11/17/2020, 015 RSV Immunizations Under 20 Months Aged Out No longer eligible based on patient's age to complete this topic Insurance MEDICAL REIMBURSEMENTS OF SUE Care Teams Human Services Assistant Relationship Specialty Start Date End Date Chivo Whittaker MD PCP - General FAMILY PRACTICE 05/01/21
--- OUTSIDE RECORDS SUMMARY | 2024-05-21 10:49 | XMS_ITS ---
Author Organization [facility] [employer] Address [address] [place] [address] Care Team Providers Care Car Tester Name Role Phone Chivo Whittaker MD Primary Care Provider Alycia Luo Unavailable [phone] Allergies Allergen (clinical drug ingredient) Drug/Non Drug [...] points) Encounters Encounter Location Date Provider Diagnosis [facility] [employer] [facility] [address] [place] [address] 04/25/2024 Alycia Peterson Major depressive disorder, recurrent severe without psychotic features F33.2 ; Generalized anxiety disorder F41.1 and Attention-deficit hyperactivity disorder, combined type F90.2 Assessments Encounter Date Diagnosis (ICD Code) Assessment Notes Treatment Notes Treatment Clinical Notes Section Notes 04/25/2024 Major depressive disorder, recurrent severe without psychotic features (ICD-10 - F33.2) SSRI/SNRI side effects discussed including but not limited to, gastric upset, nausea, vomiting, diarrhea and/or constipation, weight changes, sexual side effects including loss of libido, increased suicidal thoughts/behavior s in children and young adults, and serotonin syndrome. 04/25/2024 Generalized anxiety disorder (ICD-10 - F41.1) 04/25/2024 Attention-deficit hyperactivity disorder, combined type (ICD-10 - F90.2) 04/25/2024 Other Stop trintellix per pt. Start [...] of psychotropic medications. -Crisis prevention hotline 988. Plan Of Treatment Medication Medication Name Sig Start Date Stop Date Notes Trintellix 20 MG 1 tablet Orally Once a day for 30 days Mirtazapine 15 MG 1 tablet at bedtime Oral Once a day for 90 days Desvenlafaxine ER 50 MG 1 tablet Orally Once a day for 30 days 04/25/2024 Treatment Notes Assessment Notes Major depressive disorder, r ecurrent severe without psychotic features SSRI/SNRI side effects discussed includi ng but not limited to, gastric upset, nausea, vomiting, diarrhea and/or constipation, weight changes, sexual side effects including loss of libido, increased suicidal thoughts/behaviors in children and young adults, and serotonin syndrome. Other Stop trintellix per pt. Start desvenlafaxine 50mg daily for mood Patient educated on all medications including potential benefits, side effects, risks. Educated on proper dosing schedule and importance of compliance. Next Appt Details Follow Up: 4 Weeks, Reason: medication follow up Provider Name:Alycia Peterson, 05/23/2024 02:30:00 PM, [address], [facility] [address], [place], [address], Progress Notes * PRECIOUS GIVENS HDOB: 4 (18 yo M)Acc No.[id number]:04/25/2024 Patient: PRECIOUS MANUEL Provider: ALICIA VÁSQUEZHNGallito :2005 A ge:18 Y S ex:Male Date:04/25/2024 Address:[address] [place], [place] [id number] Pcp:Chivo Whittaker MD Subjective: * Chief Complaints: * F ollow up * HPI: H istory of Presenting Problem: Anxiety w ith excessive worry, which has been long-standing, aggravated by, difficult work, financial and/or relationship issues. D epression w ith sad mood, with isolative behavior, with feeling of hopelessness and helplessness, with decreased energy, with decreased concentration, which has been long- standing, aggravated by, difficult work, financial and/or relationship issues. M ood lability N o hx dorian. P sychosis N o hx psychosis . S leep disturbance e xcessive sleeping- sleep study planned for May . S uicidal ideation D enies. Here for medication follow up. T rintellix increased last apt. 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 Depression is it hasn't really changed that much since last time we met . Reports low motivation, lack of energy, loss of interest. States I dont care to get anything done . He is still looking for a new job, has gotten offers but has not accepted any. Anxiety is minimal, feels depression is masking the anxiety symptoms. P ast Psychiatric Hospitalizations: Social hx: Single, no children. Has three siblings, one older sister, one younger brother and sister. Completed high school. Went to school for one year at [employer]. He is a current student at [employer]. Getting Associates in [employer]. Unsure what he wants to do with [...] insomnia), sertraline, Remeron, Buspar, duloxetine, rexulti, auvelity (ineffective), Trintellix history of neglect/abuse/trauma: none substance use history: Cannabis use about weekly. Social alcohol use. D epression Screening: MARY KAY-7 (2018 Edition) F eeling nervous, anxious, or on edge?Several days, N ot being able to stop or control worrying N ot at all, W orrying too much about different things S everal days, T rouble relaxing N ot at all, B eing so restless that it is hard to sit still S everal days, B ecoming easily annoyed or irritable?More than half the days, F eeling afraid as if something awful might happen N ot at all, T otal MARY KAY-7 Score 5 , I f you checked any problems, how difficult have they made it for you to do your work, take care of things at home, or get along with other people? S omewhat difficult, I nterpretation of Total ( 0 to 4) No Anxiety. C [place]-Suicide Severity Rating Scale: Suicide Risk (CSRS-screener) i n the past one month Have you wished you were or wished you could go to sleep and not wake up? Y es, i n the past one month Have you actually had any thoughts of killing yourself? N o, H ave you ever done anything, started to do anything, or prepared to do anything to end your life? N o. D epression screening: PHQ-9 L ittle interest or pleasure in doing things N early every day, F eeling down, depressed, or hopeless N early every day, T rouble falling or staying asleep, or sleeping too much N early every day, F eeling tired or having little energy M ore than half the days, P oor appetite or overeating N early every day, F eeling bad about yourself or that you are a failure, or have let yourself or your family down M ore than half the days, T rouble concentrating on things, such as reading the newspaper or watching television N ot at all, M oving or speaking so slowly that other people could have noticed; or the opposite, being so fidgety or restless that you have been moving around a lot more than usual S everal days, T houghts that you would be better off or of hurting yourself in some way S everal days (Consider Suicide Assessment Risk), T otal Score 1 8, I nterpretation S evere Depression. I ntervention D epression Screening Findings P ositve, Follow-Up for Depression [facility], Patient follow-up to return when and if necessary, A dditional Evaluation for Depression P sychiatric interview and evaluation, N ashkan of the standardized tool used for adult depression screening: P [facility] Questionnaire (PHQ-9). * ROS: G eneral / Constitutional: Patient denies c hange in appetite, lightheadedness, sleep disturbance, weight gain, weight loss. P sychiatric: Patient denies s uicidal thoughts, auditory / visual hallucinations, dorian, psychosis. P atient complains of a nxiety, depressed mood. C omments?See HPI for details. * Medical History: * Surgical History: * Hospitalization/Major Diagno stic Procedure: n o IP admission hx * Family History: denies family psychiatric history. [...] es, D o you have Power of Popcorn Attendant for Health or Medical? N o. * Medications: T akingMirtazapine 15 MG Tablet 1 tablet at bedtime Oral Once a day Taking Mirtazapine 15 MG Tablet 1 tablet at bedtime Oral Once a day Not-TakingTrintellix 20 MG Tablet 1 tablet Orally Once a day Medication List reviewed and reconciled with the patientNot-Taking Trintellix 20 MG Tablet 1 tablet Orally Once a day Medication List reviewed and reconciled with the patient * Allergies: P enicillins: Allergy - Onset Date 07/25/2023no[Allergies Verified] Objective: * Vitals: * Examination: P sychiatry: [...] ttention-deficit hyperactivity disorder, combined type - F90.2 Plan: * Treatment: 2. O thers Notes: Stop trintellix per pt. Start desvenlafaxine 50mg daily for mood Patient educated on all medications including potential benefits, side effects, risks. Educated on proper dosing schedule and importance of compliance. Clinical Notes: -Assessment and treatment plan reviewed with patient. -Compliance with treatment plan importance discussed. -Discussed the risks/benefits of this medication -Discussed medication side effects. -Contact office if symptoms worsen. -Discussed that it can take up to 6-8 weeks to see full therapeutic effects of psychotropic medications. -Crisis prevention hotline 988. * Procedure Codes: 9 6127 BEHAV ASSMT W/SCORE & DOCD/STAND [id number] VISIT COMPLEXITY INHERENT TO ONGOING CARE RELATED TO A PATIENT'S SINGLE, SERIOUS CONDITION OR A COMPLEX [id number] CLIN DEPRESSION SCREEN DOC * Follow Up: 4 Weeks (Reason: medication follow up) * Billing Information: * Visit Code: 71901 OFFICE OUTPATIENT VISIT 25 MINUTES DETAILED HISTORY AND EXAM/MODERATE MEDICAL DECISION MAKING. * Procedure Codes: 88005 BEHAV ASSMT W/SCORE & DOCD/STAND INSTRUMENT. G2211 VISIT COMPLEXITY INHERENT TO ONGOING CARE RELATED TO A PATIENT'S SINGLE, SERIOUS CONDITION OR A COMPLEX CONDITION. G8431 CLIN DEPRESSION SCREEN DOC. * [employer] Sign off status: Completed true * Provider: FRANDY VÁSQUEZ Date: 0 04/25/2024 Generated for Nader calero/Dominique/Adrienne on: 0 05/21/2024 10:49 AM [employer] History and Physical Notes * HPI (History of Present Illness) Category Sub-Category Detail Notes Category Not es History of Presenting Problem Anxiety with excessive worry, which has been long-standing, aggravated by, difficult work, financial and/or relationship issues Here for medication follow up. Trintellix increased last apt. 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 Depression is it hasn't really changed that much since last time we met . Reports low motivation, lack of energy, loss of interest. States I dont care to get anything done . He is still looking for a new job, has gotten offers but has not accepted any. Anxiety is minimal, feels depression is masking the anxiety symptoms. Depression with sad mood, with isolative behavior, with feeling of hopelessness and helplessness, with decreased energy, with decreased concentration, which has been long- standing, aggravated by, difficult work, financial and/or relationship issues Suicidal ideation Denies Sleep disturbance excessive sleeping- sleep study planned for May Psychosis No hx psychosis Mood lability No hx dorian Past Psychiatric Hospitalizations Social hx: Single, no children. Has three siblings, one older sister, one younger brother and sister. Completed high school. Went to school for one year at [employer]. He is a current student at [employer]. Getting Associates in [employer]. Unsure what he wants to do with [...] insomnia), sertraline, Remeron, Buspar, duloxetine, rexulti, auvelity (ineffective), Trintellix history of neglect/abuse/trauma: none substance use history: Cannabis use about weekly. Social alcohol use. Depression screening PHQ-9 Little inte rest or pleasure in doing things: Nearly every day Feeling down, depressed, or hopeless: Ne ayden every day Trouble falling or staying asleep, or sl eeping too much: Nearly every day Feeling tired or having little energy: M ore than half the days Poor appetite or overeating: Nearly ever y day Feeling bad about yourself o r that you are a failure, or have let yourself or your family down: More than half the days Trouble concentrating on thi ngs, such as reading the newspaper or watching television: Not at all Moving or speaking so slowly that other people could have noticed; or the opposite, being so fidgety or restless that you have been moving around a lot more than usual: Several days Thoughts that you would be b narayan off or of hurting yourself in some way: Several days (Consider Suicide Assessment Risk) Total Score: 18 Interpretation: Severe Depression Intervention Depression Screening Findings: Gallito mcguire Follow-Up for Depression: [facility] treatment assessment, Patient follow-up to return when [...] different things : Several days Trouble relaxing: Not at all Being so restless that it is hard to sit still: Several days Becoming easily annoyed or irritable: Mo re than half the days Feeling afraid as if something awful jamar ht happen: Not at all Total MARY KAY-7 Score: 5 If you checked any problems, how difficult have they made it for you to do your work, take care of things at home, or get along with other people?: Somewhat difficult Interpretation of Total: (0 to 4) No Anx iety [place]-Suicide Severity Rating Scale Suicide Risk (CSRS-screener) in the past one month Have you wished you were or wished you could go to sleep and not wake up?: Yes in the past one month Have y ou actually had any thoughts of killing yourself?: No Have you ever done anything, started to do anything, or prepared to do anything to end your life?: No Examination Category Sub-Category Detail Notes Category [...]
--- NOTE | 2024-06-16 15:18 | P.SLEEP_ITS ---
Sleep Study Date of Study: 05/21/24 Ordering Provider: Tamica Roberts DO Interpreting Physician: Tamica Roberts DO Sleep Study Type: Multiple Sleep Latency Test Height: 1.73 m Weight: 63.503 kg Body Mass Index: 21.2 Neck Circumference (inches): 15 [place]: 14 Reason for Sleep Study Excessive daytime sleepiness Sleep History The patient is a 18-year-old male that had a sleep study ordered by his sleep physician for evaluation of excessive daytime sleepiness. The patient denies awakening from sleep short of breath. He denies awakening at night with heartburn, belching or cough. He rarely snores and is never loud enough that others complain. He frequently has trouble sleeping when he has a cold. He denies waking up gasping for air throughout the night. He denies having breathing problems at night observed by himself or others. He rarely sweats excessively at night. He rarely has heart palpitations or irregular heartbeats during the night. He frequently falls asleep during the day but never while driving. He denies sleep paralysis and cataplexy. He constantly has trouble at school or work due to sleepiness. He rarely experiences vivid dreamlike scenes upon awakening or falling asleep. He denies feeling afraid of going to sleep. He denies having nightmares. He rarely remembers his dreams. He frequently has thoughts racing through his mind. He constantly feels sad or depressed. He frequently has anxiety. He rarely has muscular tension. He denies noticing parts of his body jerk. He denies kicking during the night. He denies having crawling and aching feelings in his legs and denies having leg pain during the night. He rarely grinds his teeth during sleep and never awakens with morning jaw pain. He denies being bothered by pain during the day and denies being a wakened by pain during the night. He denies waking up feeling stiff in the morning. He denies waking up with sore or achy muscles. He denies waking up with pain in the neck, spine and other joints. He goes to bed between midnight to 2:00 a.m. on weekdays and between midnight to 3:00 a.m. on the weekends. The amount of time it takes for him to fall asleep is variable. He does not typically wake up throughout the night. He wakes up between 830-9 a.m. on weekdays and between 11:00 a.m. to 2:00 p.m. on the weekends. He typically gets 7-9 hours of sleep per night. He will stay and bed as long as he can in the morning. He currently lives with his parents and 2 siblings. He denies consuming any caffeinated beverages within 2 hours of bedtime. He denies engaging in physical exercise before bedtime. He will watch television before falling asleep. He denies taking naps in afternoon or the evening. He consumes 1-2 caffeinated beverages per week. He does consume an alcoholic be verage occasionally. He denies tobacco use. He uses marijuana a few times per week. [facility] Past Medical History Medical History Vasomotor rhinitis Depression Fracture of finger, middle phalanx, right, closed Family History Family History Sibling Family history of mental disorder Depression Grandparent Family history of cardiovascular disease Family history of congestive heart failure Social History Social History Smoking status: Never smoker Second hand tobacco smoke exposure: Yes Alcohol intake: never Lack of Transportation: No Lack of Food: Never True Current Housing: I Have Housing Concerned About Future Housing: No Difficulty Paying Gas/Electric Bills: No Difficulty Paying for Meds: No Currently Unemployed: No Education: High School Diploma/GED Living arrangements: dorm student housing Occupation/Education: student Gender identity (if verbalized by the patient): Male Medications Home Medications ?Medication ?Instructions ?Recorded ?Confirmed ?Type mirtazapine 15 mg tablet 15 mg PO QHS #30 tabs 04/11/23 03/26/24 Rx vortioxetine 10 mg tablet 10 mg PO DAILY 03/26/24 03/26/24 History (Colin) Sleep Procedure The recording montage for the MSLT includes central EEG (C3-A2, C4-A1) and occipital (O1-A2, O2-A1) derivations, left and right eye electrooculograms (EOGs), mental/submental electromyogram (EMG), and electrocardiogram (EKG). The MSLT consists of 5 nap trials. The initial trial should begin 1.5?3 hours after termination of the nocturnal recording. Each subsequent trial should begin 2 hours after the start of the prior trial. Only when the results are clearly diagnostic of narcolepsy after 4 naps with mean latency <=8 minutes and 2 or more SOREMPs have occurred (either because of 2 or more SOREMPs during the nap trials or 1 in the nap trials and 1 during the PSG) should a shorter 4-nap trial test be performed. Sleep Architecture Nap Summary: Nap trials started at 07:47:48 AM following an overnight polysomnogram that ended at 05:40:30 AM with an overall Apnea Hypopnea index of 0.6 events per hour with 3% desaturations and an Apnea Hypopnea index of 0.3 events per hour with 4% desaturations. Sleep onset REM (SOREM) during the overnight polysomnogram. Nap 1 commenced at 07:47:48 AM. Sleep latency was 5.9 minutes. REM sleep did not occur. Total sleep time was 19.3 minutes. Nap was terminated at 08:14:04 AM. The patient reported that sleep occurred. The patient reported that dreaming did occur. Nap 2 commenced at 09:44:14 AM. Sleep latency was 10.5 minutes. REM sleep did not occur. Total sleep time was 14.9 minutes. Nap was terminated at 10:10:39 AM. The patient reported that sleep occurred. The patient reported that dreaming did occur. Nap 3 commenced at 11:47:45 AM. Sleep latency was 5.0 minutes. REM sleep did not occur. Total sleep time was 12.0 minutes. Nap was terminated at 12:07:49 PM. The patient reported that sleep may have occurred. The patient reported that dreaming did not occur. Nap 4 commenced at 01:45:44 PM. Sleep latency was 6.5 minutes. REM sleep did not occur. Total sleep time was 14 minutes. Nap was terminated at 02:07:14 PM. The patient reported that sleep did not occur. The patient reported that dreaming did not occur. Nap 5 commenced at 03:42:44 PM. Sleep latency was 10.5 minutes. REM sleep did not occur. Total sleep time was 8.0 minutes. Nap was terminated at 04:10:16 PM. The patient reported that sleep did not occur. The patient reported that dreaming did not occur. The patient achieved sleep in 5 of 5 nap opportunities. The overall average sleep latency was 7.7 minutes. The patient achieved REM sleep (SOREM) in 0 naps. The overall average REM latency was > 20 minutes. Respiratory Analysis N/A Arousals N/A Periodic Limb Movements N/A Oximetry Data N/A Snoring Profile N/A Cardiac Profile The EKG lead showed normal sinus rhythm with occasional PVCs. EEG Profile No signs of seizure activity seen. Assessment and Plan Assessment and Plan (1) Hypersomnia: Code(s): G47.10 - Hypersomnia, unspecified Status: Acute Assessment and Plan: The patient achieved sleep in 5 of 5 nap opportunities. The overall average sleep latency was 7.7 minutes. The patient achieved REM sleep (SOREM) in 0 naps. The overall average REM latency was > 20 minutes. This does not meet criteria for narcolepsy. Please see polysomnogram report. Data The data obtained during this sleep study is adequate for interpretation. Certification This sleep study has been reviewed by a board certified sleep medicine physician.
[2024-06-16 15:33] VITALS: BMI 21.2
--- NOTE | 2024-06-16 15:40 | P.SLEEP_ITS ---
Sleep Study Date of Study: 05/21/24 Ordering Provider: Tamica Roberts DO Interpreting Physician: Tamica Roberts DO Sleep Study Type: Multiple Sleep Latency Test Height: 1.73 m Weight: 63.503 kg Body Mass Index: 21.2 Neck Circumference (inches): 15 [place]: 14 Reason for Sleep Study Excessive daytime sleepiness Sleep History The patient is a 18-year-old male that had a sleep study ordered by his sleep physician for evaluation of excessive daytime sleepiness. The patient denies awakening from sleep short of breath. He denies awakening at night with heartburn, belching or cough. He rarely snores and is never loud enough that others complain. He frequently has trouble sleeping when he has a cold. He denies waking up gasping for air throughout the night. He denies having breathing problems at night observed by himself or others. He rarely sweats excessively at night. He rarely has heart palpitations or irregular heartbeats during the night. He frequently falls asleep during the day but never while driving. He denies sleep paralysis and cataplexy. He constantly has trouble at school or work due to sleepiness. He rarely experiences vivid dreamlike scenes upon awakening or falling asleep. He denies feeling afraid of going to sleep. He denies having nightmares. He rarely remembers his dreams. He frequently has thoughts racing through his mind. He constantly feels sad or depressed. He frequently has anxiety. He rarely has muscular tension. He denies noticing parts of his body jerk. He denies kicking during the night. He denies having crawling and aching feelings in his legs and denies having leg pain during the night. He rarely grinds his teeth during sleep and never awakens with morning jaw pain. He denies being bothered by pain during the day and denies being a wakened by pain during the night. He denies waking up feeling stiff in the morning. He denies waking up with sore or achy muscles. He denies waking up with pain in the neck, spine and other joints. He goes to bed between midnight to 2:00 a.m. on weekdays and between midnight to 3:00 a.m. on the weekends. The amount of time it takes for him to fall asleep is variable. He does not typically wake up throughout the night. He wakes up between 830-9 a.m. on weekdays and between 11:00 a.m. to 2:00 p.m. on the weekends. He typically gets 7-9 hours of sleep per night. He will stay and bed as long as he can in the morning. He currently lives with his parents and 2 siblings. He denies consuming any caffeinated beverages within 2 hours of bedtime. He denies engaging in physical exercise before bedtime. He will watch television before falling asleep. He denies taking naps in afternoon or the evening. He consumes 1-2 caffeinated beverages per week. He does consume an alcoholic be verage occasionally. He denies tobacco use. He uses marijuana a few times per week. [facility] Past Medical History Medical History Vasomotor rhinitis Depression Fracture of finger, middle phalanx, right, closed Family History Family History Sibling Family history of mental disorder Depression Grandparent Family history of cardiovascular disease Family history of congestive heart failure Social History Social History Smoking status: Never smoker Second hand tobacco smoke exposure: Yes Alcohol intake: never Lack of Transportation: No Lack of Food: Never True Current Housing: I Have Housing Concerned About Future Housing: No Difficulty Paying Gas/Electric Bills: No Difficulty Paying for Meds: No Currently Unemployed: No Education: High School Diploma/GED Living arrangements: dorm student housing Occupation/Education: student Gender identity (if verbalized by the patient): Male Medications Home Medications ?Medication ?Instructions ?Recorded ?Confirmed ?Type mirtazapine 15 mg tablet 15 mg PO QHS #30 tabs 04/11/23 03/26/24 Rx vortioxetine 10 mg tablet 10 mg PO DAILY 03/26/24 03/26/24 History ([facility]) Sleep Procedure A full night polysomnogram using the [employer] Messenger multi-channel system recorded the standard physiologic parameters including EEG, EOG, submentalis EMG, anterior tibialis EMG, EKG, body position, nasal and oral airflow using nasal pressure sensor and thermistor.? Respiratory parameters of chest and abdominal movements were recorded with Respiratory Inductance Plethysmography belts. Oxygen saturation was recorded by pulse oximetry. Video monitoring was also performed. Sleep stages, periodic limb movements, and EEG arousals were scored in 30 second epochs according to the criteria of the AASM Scoring Manual. The Apnea-Hypopnea Index was calculated using [facility] guidelines for definition of hypopnea with 4% O2 desaturations while scoring respiratory events. Sleep Architecture The total recording time was 410.0 minutes.? The total sleep time was 371.0 minutes. Sleep latency was 6.8 minutes. REM latency was 330.0 minutes. Sleep efficiency was 90.5%. The patient had 39 awakenings for an awakening index of 6.3. Wake after sleep onset time was 32.5 minutes. The patient spent 39.0 minutes, 10.5% of total sleep time in Stage N1. The patient spent 229.0 minutes, 61.7% in Stage N2. The patient spent 64.5 minutes, 17.4% in Stage N3. The patient spent 38.5 minutes, 10.4% in Stage REM sleep. Respiratory Analysis The patient had 1 obstructive apneas and 1 central apnea for an overall Apnea Hypopnea Index of 0.3. The REM Apnea Hypopnea Index was 1.6. The NREM Apnea Hypopnea Index was 0.4. The patient had a Central Apnea Hypopnea Index of 0.2. There was no evidence of Roman-Chu Respirations. Arousals There were 128 total arousals for an arousal index of 20.7. There were 75 spontaneous arousals for an index of 12.1. There were 1 arousals due to respiratory events for an index of 0.2. There were 19 arousals due to periodic limb movements for an index of 3.1.? There were 37 arousals due to isolated limb movements for an index of 6.0. Periodic Limb Movements The patient had 59 isolated limb movements with an index of 9.5. The patient had 47 periodic limb movements with an index of 7.6. Patient had a total of 106 limb movements with a total limb movement index of 17.1. Oximetry Data The patient had an average oxygen saturation of 95.4% in sleep with a minimum oxygen saturation of 91.0% and a maximum oxygen saturation of 98.0%. The patient had 11 oxygen desaturations that were 4% or greater resulting in an Oxygen Desaturation Index of 1.8.? The patient spent 0 minutes of total sleep time with an oxygen saturation below 88%. Snoring Profile Snoring was not present during this study. Cardiac Profile The EKG showed normal sinus rhythm with occasional PVCs. The patient had an average pulse rate of 68.9 bpm with a minimum pulse of rate of 53.0 bpm and a maximum pulse rate of 111.0 bpm.? EEG Profile No signs of seizure activity seen. Assessment and Plan Assessment and Plan (1) Hypersomnia: Code(s): G47.10 - Hypersomnia, unspecified Status: Acute Assessment and Plan: The patient had an overall AHI of 0.3 with desaturation down to 91%. This is not consistent with sleep disordered breathing. The sleep latency was 6.8 minutes and REM latency was 330.0 minutes. Sleep-onset REM was not present. Please see MSLT report. Data The data obtained during this sleep study is adequate for interpretation. Certification This sleep study has been reviewed by a board certified sleep medicine physician.
[2024-06-16 15:46] VITALS: BMI 21.2
== END 2024-05-22 16:19 | disposition home or self-care (01) ==
LOC: ANHCSM 09:44
PROVIDERS: PCP Family Medicine; Visit Provider Family Medicine
DX: G47.00 Insomnia, unspecified (principal); G47.10 Hypersomnia, unspecified
CPT/HCPCS: 95805; 95810